=== PATIENT | male | born 1995 | race American Indian/Alaskan Native ===

== ENCOUNTER 2017-02-08 18:25 | Emergency (ER) | payer SELFPAY ==
[2017-02-08 19:21] VITALS: BP 121/87
[2017-02-08] MEDS ORDERED: ZOFRAN ODT ONE (19:22)
[2017-02-08] MEDS ORDERED: ZOFRAN ODT PO ONE (19:24)
[2017-02-08 20:00] LABS: Basophils % (Auto) 0.3 % (0.0-1.8); Eosinophils % (Auto) 0.3 % (0.0-4.3); Hematocrit 48.3 % (35.5-45.6); Hemoglobin 16.4 gm/dl (11.8-15.2); Mean Corpuscular HGB Conc 34 % (32-34); Mean Corpuscular Hemoglobin 31 pg (28-32); Mean Corpuscular Volume 92 fl (84-94); Platelet Count 240 K/mm3 (140-440); Red Blood Count 5.25 M/mm3 (3.65-5.03); Red Cell Distribution Width 13.1 % (13.2-15.2); White Blood Count 13.3 K/mm3 (4.5-11.0)
[2017-02-08 20:19] LABS: Anion Gap 21 mmol/L; BUN/Creatinine Ratio 14.44; Blood Urea Nitrogen 13 mg/dL (9-20); Calcium 10.3 mg/dL (8.4-10.2); Carbon Dioxide 22 mmol/L (22-30); Chloride 99.9 mmol/L (98-107); Glucose 139 mg/dL (75-100); Potassium 4.2 mmol/L (3.6-5.0); Sodium 139 mmol/L (137-145)
== END 2017-02-09 01:00 | disposition left against medical advice (07) ==
LOC: ED 18:25
DX: R11.10 Vomiting, unspecified (principal); Z53.21 Procedure and treatment not carried out due to patient leaving prior to being seen by health care provider
CPT/HCPCS: 36415; 80048; 85025; Q0162

== ENCOUNTER 2018-04-27 18:19 | Emergency (ER) | payer SELFPAY ==
[2018-04-27 18:27] VITALS: BP 114/52
[2018-04-27 19:14] LABS: Basophils % (Auto) 0.6 % (0.0-1.8); Eosinophils # (Auto) 0.1 K/mm3 (0.0-0.4); Hematocrit 42.9 % (35.5-45.6); Hemoglobin 14.7 gm/dl (11.8-15.2); Lymphocytes # (Auto) 2.6 K/mm3 (1.2-5.4); Lymphocytes % (Auto) 34.3 % (13.4-35.0); Mean Corpuscular HGB Conc 34 % (32-34); Mean Corpuscular Hemoglobin 32 pg (28-32); Mean Corpuscular Volume 93 fl (84-94); Monocytes # (Auto) 0.6 K/mm3 (0.0-0.8); Monocytes % (Auto) 8.1 % (0.0-7.3); Platelet Count 214 K/mm3 (140-440); Red Blood Count 4.61 M/mm3 (3.65-5.03); Red Cell Distribution Width 13.6 % (13.2-15.2)
[2018-04-27 19:21] LABS: Alanine Aminotransferase 24 units/L (7-56); Albumin 4.3 g/dL (3.9-5); BUN/Creatinine Ratio 9; Blood Urea Nitrogen 8 mg/dL (9-20); Calcium 8.7 mg/dL (8.4-10.2); Hemolysis Index 9; Lipase 39 units/L (13-60)
--- NOTE | 2018-04-27 22:15 | XRay Report ---
FINAL REPORT PROCEDURE: XR ABDOMEN 2V TECHNIQUE: Abdominal radiograph, single supine AP view. HISTORY: abd pain and constipation COMPARISON: No prior studies are available for comparison. FINDINGS: Bowel gas pattern:Nonobstructive. Masses or calcifications:None. Bony structures:No significant abnormality. Other:None. IMPRESSION: No acute abnormality
--- NOTE | 2018-04-27 22:54 | Emergency Department Report ---
ED N/V/D HPI - General Chief complaint: Abdominal Pain Stated complaint: STOMACH PAIN Time Seen by Provider: 04/27/18 20:42 Source: patient Mode of arrival: Ambulatory Limitations: No Limitations - History of Present Illness MD complaint: nausea, diarrhea (denies develop constipation. Reports no fevers , chills, sweats. No chest pain or palpitations. No foreign travel. No significant no hematemesis or hematochezia. No dysuria, no flank pain.), abdominal pain -: days(s) Time: 03:00 Description of Vomiting: other Description of Diarrhea: other Associated Abdominal Pain: No Location: diffuse Radiation: none Severity: mild Quality: cramping, dull Consistency: intermittent Improves with: none Worsens with: none Associated Symptoms: nausea/vomiting. denies: myalgias, cough, diaphoresis, loss of appetite, malaise, dysuria, syncope, weakness - Related Data Previous Rx's Medication Instructions Recorded Last Taken Type Ciprofloxacin HCl [Cipro] 500 mg PO BID #10 tablet 02/27/18 Unknown Rx Omeprazole 40 mg PO DAILY #10 capsule. 02/27/18 Unknown Rx metroNIDAZOLE [Flagyl] 500 mg PO Q12HR #10 tab 02/27/18 Unknown Rx Bisacodyl [Dulcolax suppos] 10 mg [place] QDAY #10 supp.rect 04/27/18 Unknown Rx Metoclopramide [Reglan] 10 mg PO TID #20 tab 04/27/18 Unknown Rx Allergies Allergy/AdvReac Type Severity Reaction Status Date / Time No Known Allergies Allergy Verified 04/27/18 18:21 ED Review of Systems ROS: Stated complaint: STOMACH PAIN Other details as noted in HPI ED Past Medical Hx - Past Medical History Previous Medical History?: No Additional medical history: Inflammed Galbladder - Surgical History Past Surgical History?: No - Social History Smoking Status: Current Every Day Smoker Substance Use Type: Alcohol, Marijuana - Medications Home Medications: Home Medications Medication Instructions Recorded Confirmed Last Taken Type Ciprofloxacin HCl [Cipro] 500 mg PO BID #10 tablet 02/27/18 Unknown Rx Omeprazole 40 mg PO DAILY #10 capsule. 02/27/18 Unknown Rx metroNIDAZOLE [Flagyl] 500 mg PO Q12HR #10 tab 02/27/18 Unknown Rx Bisacodyl [Dulcolax suppos] 10 mg [place] QDAY #10 supp.rect 04/27/18 Unknown Rx Metoclopramide [Reglan] 10 mg PO TID #20 tab 04/27/18 Unknown Rx ED Physical Exam - General Limitations: No Limitations ED Course Vital Signs 04/27/18 18:21 Temperature 97.8 F Pulse Rate 99 H Respiratory 18 Rate Blood Pressure 114/52 O2 Sat by Pulse 99 Oximetry ED Medical Decision Making - Lab Data Result diagrams: 04/27/18 18:44 04/27/18 18:44 Critical care attestation.: If time is entered above; I have spent that time in minutes in the direct care of this critically ill patient, excluding procedure time. ED Disposition Clinical Impression: Constipation, Diarrhea Disposition: DC- TO HOME OR SELFCARE Is pt being admited?: No Does the pt Need Aspirin: No Condition: Stable Instructions: Constipation (ED), High Fiber Diet (ED) Prescriptions: Bisacodyl [Dulcolax suppos] 10 mg [place] QDAY #10 supp.rect Metoclopramide [Reglan] 10 mg PO TID #20 tab Referrals: PRIMARY CARE, [Primary Care Provider] - 3-5 Days
== END 2018-04-27 23:00 | disposition home or self-care (01) ==
LOC: ED 18:19
DX: K59.00 Constipation, unspecified (principal); R19.7 Diarrhea, unspecified; F17.200 Nicotine dependence, unspecified, uncomplicated; F12.10 Cannabis abuse, uncomplicated
CPT/HCPCS: 36415; 74019; 80053; 83690; 85025; 99283

== ENCOUNTER 2018-10-18 05:24 | Emergency (ER) | payer SELFPAY ==
[2018-10-18] MEDS ORDERED: ZOFRAN IV ONE ×2 (05:42→07:54)
[2018-10-18] MEDS ORDERED: NACL 0.9% 1000 ML 1,000 ML IV ONE ×2 (05:43→07:16)
[2018-10-18 06:08] LABS: Hematocrit 49.4 % (35.5-45.6); Hemoglobin 16.8 gm/dl (11.8-15.2); Mean Corpuscular HGB Conc 34 % (32-34); Mean Corpuscular Volume 93 fl (84-94); Platelet Count 284 K/mm3 (140-440); Red Blood Count 5.34 M/mm3 (3.65-5.03); Red Cell Distribution Width 13.4 % (13.2-15.2)
[2018-10-18 06:30] LABS: BUN/Creatinine Ratio 18; Blood Urea Nitrogen 22 mg/dL (9-20); Calcium 9.8 mg/dL (8.4-10.2); Hemolysis Index 8
[2018-10-18 06:53] LABS: Bilirubin,Urine NEG (Negative); Blood,Urine NEG (Negative); Color,Urine Yellow (Yellow); Mucus,Urine 1+ /HPF; Urobilinogen,Urine < 2.0 mg/dL (<2.0)
--- NOTE | 2018-10-18 07:50 | Emergency Department Report ---
ED Abdominal Pain HPI - General Chief Complaint: Nausea/Vomiting/Diarrhea Stated Complaint: NAUSEA VOMITING Time Seen by Provider: 10/18/18 07:11 Source: patient Mode of arrival: Ambulatory Limitations: No Limitations - History of Present Illness Initial Comments: This is a 23-year-old male nontoxic, well nourished in appearance, no acute signs of distress presents to the ED with c/o of nausea and vomiting and abdominal pain 1 day. Patient describes vomiting as food content and yellow gastric acid. Patient describes abdominal pain as cramping and aching with level of 3/10 diffuse. Patient denies chest pain, short of breath, fever, chills, headache, stiff neck, numbness or tingling. Patient stated also has some diarrhea. Patient denies any recent travels. Patient denies any allergies or significant PMH. MD Complaint: abdominal pain -: days(s) Location: diffuse Radiation: none Migration to: no migration Severity: mild Severity scale (0 -10): 3 Quality: cramping, aching Consistency: constant Improves With: nothing Worsens With: nothing Associated Symptoms: nausea, vomiting. denies: diarrhea, fever, chills, constipation, dysuria, hematemesis, hematochezia, melena, hematuria, anorexia, syncope - Related Data Previous Rx's Medication Instructions Recorded Last Taken Type metroNIDAZOLE [Flagyl] 500 mg PO Q12HR #10 tab 02/27/18 Unknown Rx Bisacodyl [Dulcolax suppos] 10 mg [place] QDAY #10 supp.rect 04/27/18 Unknown Rx Ciprofloxacin HCl [Cipro] 500 mg PO BID #10 tablet 06/23/18 Unknown Rx Metoclopramide [Reglan TAB] 10 mg PO TID #20 tab 06/23/18 Unknown Rx Omeprazole 40 mg PO DAILY #10 capsule. 06/23/18 Unknown Rx Allergies Allergy/AdvReac Type Severity Reaction Status Date / Time No Known Allergies Allergy Verified 04/27/18 18:21 ED Review of Systems ROS: Stated complaint: NAUSEA VOMITING Other details as noted in HPI Constitutional: denies: chills, fever Eyes: denies: eye pain, eye discharge, vision change ENT: denies: ear pain, throat pain Respiratory: denies: cough, shortness of breath, wheezing Cardiovascular: denies: chest pain, palpitations Endocrine: no symptoms reported Gastrointestinal: abdominal pain, nausea, vomiting. denies: diarrhea Genitourinary: denies: urgency, dysuria Musculoskeletal: denies: back pain, joint swelling, arthralgia Skin: denies: rash, lesions Neurological: denies: headache, weakness, paresthesias Psychiatric: denies: anxiety, depression Hematological/Lymphatic: denies: easy bleeding, easy bruising ED Past Medical Hx - Past Medical History Previous Medical History?: Yes Additional medical history: Inflammed Galbladder - Surgical History Past Surgical History?: No - Social History Smoking Status: Current Every Day Smoker Substance Use Type: Marijuana - Medications Home Medications: Home Medications Medication Instructions Recorded Confirmed Last Taken Type metroNIDAZOLE [Flagyl] 500 mg PO Q12HR #10 tab 02/27/18 Unknown Rx Bisacodyl [Dulcolax suppos] 10 mg [place] QDAY #10 supp.rect 04/27/18 Unknown Rx Ciprofloxacin HCl [Cipro] 500 mg PO BID #10 tablet 06/23/18 Unknown Rx Metoclopramide [Reglan TAB] 10 mg PO TID #20 tab 06/23/18 Unknown Rx Omeprazole 40 mg PO DAILY #10 capsule.dr 06/23/18 Unknown Rx ED Physical Exam - General Limitations: No Limitations General appearance: alert, in no apparent distress - Head Head exam: Present: atraumatic, normocephalic - Eye Eye exam: Present: normal appearance - Neck Neck exam: Present: normal inspection, full ROM. Absent: tenderness, meningismus, lymphadenopathy - Respiratory Respiratory exam: Present: normal lung sounds bilaterally. Absent: respiratory distress, wheezes, rales, rhonchi, stridor, chest wall tenderness, accessory muscle use, decreased breath sounds, prolonged expiratory - Cardiovascular Cardiovascular Exam: Present: regular rate, normal rhythm, normal heart sounds. Absent: bradycardia, tachycardia, irregular rhythm, systolic murmur, diastolic murmur, rubs, gallop - GI/Abdominal GI/Abdominal exam: Present: soft, tenderness (diffuse ), normal bowel sounds. Absent: distended, guarding, rebound, rigid, diminished bowel sounds - Expanded GI/Abdominal Exam Expanded GI/Abdominal exam: Absent: psoas sign, Jimenez's sign, Rovsing's sign, tenderness at [place]bur[place]'s Point, ascites - Rectal Rectal exam: Present: deferred - Extremities Exam Extremities exam: Present: normal inspection, full ROM, normal capillary refill - Back Exam Back exam: Present: normal inspection, full ROM. Absent: tenderness, CVA tenderness (R), CVA tenderness (L), muscle spasm, paraspinal tenderness, vertebral tenderness, rash noted - Neurological Exam Neurological exam: Present: alert, oriented X3 - Psychiatric Psychiatric exam: Present: normal affect, normal mood - Skin Skin exam: Present: warm, dry, intact, normal color. Absent: rash ED Course Vital Signs 10/18/18 10/18/18 05:28 09:24 Temperature 97.9 F Pulse Rate 76 Respiratory 18 16 Rate Blood Pressure 131/51 O2 Sat by Pulse 98 Oximetry - Reevaluation(s) Reevaluation #1: 10/18/18 07:48 Patient is speaking in full sentences with no signs of distress noted. - Consultations Consultation #1: 10/18/18 09:00 Patient has been consulted with Jodi Gooden about patient history, physical exam, and labs/CT results and agrees to ED plan of care with surgery consult for possible admission. Consultation #2: 10/18/18 09:26 Dr. Garduno (hospitalist) was consulted and accepts patient to services for admission. ED Medical Decision Making - Lab Data Result diagrams: 10/18/18 05:48 10/18/18 05:48 - Medical Decision Making This is a 23-year-old male that presents with SB intussusception. Patient is stable and was examined by me. There is slight abdominal tenderness. Negative signs of symptoms of appendicitis. Labs obtained. UA obtained. Ct with contrast obtained and dictated by the radiologist. Patient was consulted with Dr. Swanson and Dr. Huang. Agrees for admission. Patient admitted by hospitalist. Patient put on NPO. At time of admission, the patient does not seem toxic or ill in appearance. No acute signs of distress noted. Patient agrees to admission treatment plan of care. No further questions noted by the patient. Critical care attestation.: If time is entered above; I have spent that time in minutes in the direct care of this critically ill patient, excluding procedure time. ED Disposition Clinical Impression: Small bowel intussusception Disposition: OP ADMIT IP TO THIS HOSP Is pt being admited?: Yes Condition: Stable
--- NOTE | 2018-10-18 08:50 | Cat Scan Report ---
PROCEDURE: CT ABDOMEN PELVIS W CON TECHNIQUE: CT of the abdomen and pelvis was performed. IV contrast was administered. No oral contrast was administered. Axial images and coronal and sagittal reformatted images were obtained. HISTORY: abd pain n/v COMPARISON: 06/23/2018 FINDINGS: The visualized lung bases are clear. The visualized liver, spleen, pancreas, adrenal glands and kidneys demonstrate no significant abnorma lity. There is no abdominal aortic aneurysm. There is a small bowel intussusception in the lower abdomen/pelvis. This may be transient. It does no t cause obstruction. The appendix is normal. There is no abnormal fluid collection seen. There is no free intraperitoneal air. Bladder is unremarkable. There is no abnormal pelvic fluid collection or mass seen. IMPRESSION: There is a short segment small bowel intussusception seen in the lower abdomen/pelvis. This does not cause obstruction. It may be transient. No other significant abnormalities seen. This document is electronically signed by Yumiko Patel MD., October 18 2018 08:47:57 AM ET
[2018-10-18] MEDS ORDERED: MORPHINE IV ONE (09:13)
[2018-10-18] MEDS ORDERED: REGLAN IV ONE (09:13)
[2018-10-18 10:15] VITALS: BP 106/54
[2018-10-18] MEDS ORDERED: ZOFRAN IV PRN (10:18)
[2018-10-18 10:28] LABS: Basophils % (Manual) 0 % (0.0-1.8); Eosinophils % (Manual) 0 % (0.0-4.3); Monocytes % (Manual) 0 % (0.0-7.3); Total Cells Counted 100
[2018-10-18 10:29] LABS: Platelet Estimate Consistent w Auto; RBC Morphology Normal
--- NOTE | 2018-10-18 10:37 | History and Physical Report ---
History of Present Illness Date of examination: 10/18/18 Date of admission: 10/18/18 09:29 Chief complaint: Nausea and vomiting History of present illness: 23-year-old male with past medical history significant for gastritis, alcohol abuse presents to the emergency department his complains of vomiting that started Friday morning and continued today total of 30X. Patient drunk a lot of beer and alcohol Friday night to Friday morning. Patient started to have nausea, vomiting. Initially it was yellowish and there after was clear. Patient also smoking marijuana and cigarettes. Patient denied any fever or chills. Patient has mild abdominal pain and diarrhea. Patient believes he has food poisoning. Patient had similar symptoms previously when he is drinking a lot. CT abdomen and pelvis was done in the ED showed intussusception, with no bowel obstruction and Dr Swanson was consulted and recommend to our service and will see him for observation. REVIEW OF SYSTEMS: GENERAL: no weight change, no fatigue, no fever HEAD: no head ache EYES: no blurry vision, no acute visual loss EARS: no hearing loss, no discharge, no earache NOSE: no stuffiness, no sneezing, no discharge MOUTH, THROAT AND NECK: no bleeding gums, no sore throat, no swollen neck CARDIAC: no palpitations, no dyspnea on exertion, no orthopnea, no PND, no edema, no chest pain RESPIRATORY: no shortness of breath, no wheeze, no cough, no sputum, no hemoptysis, no asthma GI: As stated in HPI. URINARY: no change in frequency, no urgency, no polyuria, no hematuria, no incontinence MUSCULOSKELETAL: no muscle weakness, no pain, no joint stiffness NEUROLOGIC: no loss of sensation/numbness, no tingling, no tremors, no weakness/paralysis HEMATOLOGIC: no anemia, no easy bruising SKIN: no rashes ENDOCRINE: no heat/cold intolerance, no polyuria, no polydipsia, no thyroid problems, no diabetes PSYCHIATRIC: no anxiety, no depression, no suicidal ideations Past History Past Medical History: other (gastritis, alcohol abuse) Past Surgical History: No surgical history Social history: smoking (smoking marijuana, and cigarettes), alcohol abuse (beer and alcohol), full code Family history: no significant family history Medications and Allergies Allergies Allergy/AdvReac Type Severity Reaction Status Date / Time No Known Allergies Allergy Verified 04/27/18 18:21 Home Medications Medication Instructions Recorded Confirmed Last Taken Type metroNIDAZOLE [Flagyl] 500 mg PO Q12HR #10 tab 02/27/18 Unknown Rx Bisacodyl [Dulcolax suppos] 10 mg [place] QDAY #10 supp.rect 04/27/18 Unknown Rx Ciprofloxacin HCl [Cipro] 500 mg PO BID #10 tablet 06/23/18 Unknown Rx Metoclopramide [Reglan TAB] 10 mg PO TID #20 tab 06/23/18 Unknown Rx Omeprazole 40 mg PO DAILY #10 capsule. 06/23/18 Unknown Rx Active Meds: Active Medications Enoxaparin Sodium (Lovenox) 40 mg SUB-Q QDAY@2200 SINDY Dextrose/Sodium Chloride (D5/0.45ns) 1,000 mls @ 75 mls/hr IV DIRECT SINDY Levofloxacin/Dextrose (Levaquin 750mg/150ml) 750 mg in 150 mls @ 100 mls/hr IV Q24HR SINDY; Protocol Ondansetron HCl (Zofran) 4 mg IV Q8H PRN PRN Reason: N/V unrelieved by Reglan Pantoprazole Sodium (Protonix) 40 mg IV BID SINDY Exam - Physical Exam Narrative exam: Not in cardiopulmonary distress. The patient appeared well nourished and normally developed. Vital signs as documented. Head exam is unremarkable. No scleral icterus . Neck is without jugular venous distension, thyromegaly, or carotid bruits. Lungs are clear to auscultation. Cardiac exam reveals regular rate and Rhythm. Abdominal exam reveals normal bowel sounds. Extremities are nonedematous and both femoral and pedal pulses are normal. INFORMATION SYSTEMS ARCHITECT: Alert and oriented 3. No focal weakness. - Constitutional Vitals: Temp Pulse Resp BP Pulse Ox 97.8 F 68 16 106/54 97 10/18/18 10:14 10/18/18 10:14 10/18/18 10:14 10/18/18 10:14 10/18/18 10:14 Results - Labs CBC & Chem 7: 10/18/18 05:48 10/18/18 05:48 Labs: Laboratory Last Values WBC 19.4 K/mm3 (4.5-11.0) H 10/18/18 05:48 RBC 5.34 M/mm3 (3.65-5.03) H 10/18/18 05:48 Hgb 16.8 gm/dl (11.8-15.2) H 10/18/18 05:48 Hct 49.4 % (35.5-45.6) H 10/18/18 05:48 MCV 93 fl (84-94) 10/18/18 05:48 MCH 31 pg (28-32) 10/18/18 05:48 MCHC 34 % (32-34) 10/18/18 05:48 RDW 13.4 % (13.2-15.2) 10/18/18 05:48 Plt Count 284 K/mm3 (140-440) 10/18/18 05:48 Add Manual Diff Complete 10/18/18 05:48 Total Counted 100 10/18/18 05:48 Seg Neuts % (Manual) 95.0 % (40.0-70.0) H 10/18/18 05:48 Band Neutrophils % 0 % 10/18/18 05:48 Lymphocytes % (Manual) 5.0 % (13.4-35.0) L 10/18/18 05:48 Reactive Lymphs % (Man) 0 % 10/18/18 05:48 Monocytes % (Manual) 0 % (0.0-7.3) 10/18/18 05:48 Eosinophils % (Manual) 0 % (0.0-4.3) 10/18/18 05:48 Basophils % (Manual) 0 % (0.0-1.8) 10/18/18 05:48 Metamyelocytes % 0 % 10/18/18 05:48 Myelocytes % 0 % 10/18/18 05:48 Promyelocytes % 0 % 10/18/18 05:48 Blast Cells % 0 % 10/18/18 05:48 Nucleated RBC % Not Reportable 10/18/18 05:48 Seg Neutrophils # Man 18.4 K/mm3 (1.8-7.7) H 10/18/18 05:48 Band Neutrophils # 0.0 K/mm3 10/18/18 05:48 Lymphocytes # (Manual) 1.0 K/mm3 (1.2-5.4) L 10/18/18 05:48 Abs React Lymphs (Man) 0.0 K/mm3 10/18/18 05:48 Monocytes # (Manual) 0.0 K/mm3 (0.0-0.8) 10/18/18 05:48 Eosinophils # (Manual) 0.0 K/mm3 (0.0-0.4) 10/18/18 05:48 Basophils # (Manual) 0.0 K/mm3 (0.0-0.1) 10/18/18 05:48 Metamyelocytes # 0.0 K/mm3 10/18/18 05:48 Myelocytes # 0.0 K/mm3 10/18/18 05:48 Promyelocytes # 0.0 K/mm3 10/18/18 05:48 Blast Cells # 0.0 K/mm3 10/18/18 05:48 WBC Morphology Not Reportable 10/18/18 05:48 Hypersegmented Neuts Not Reportable 10/18/18 05:48 Hyposegmented Neuts Not Reportable 10/18/18 05:48 Hypogranular Neuts Not Reportable 10/18/18 05:48 Smudge Cells Not Reportable 10/18/18 05:48 Toxic Granulation Not Reportable 10/18/18 05:48 Toxic Vacuolation Not Reportable 10/18/18 05:48 Dohle Bodies Not Reportable 10/18/18 05:48 Pelger-Huet Anomaly Not Reportable 10/18/18 05:48 Jenesn Rods Not Reportable 10/18/18 05:48 Platelet Estimate Consistent w auto 10/18/18 05:48 Clumped Platelets Not Reportable 10/18/18 05:48 Plt Clumps, EDTA Not Reportable 10/18/18 05:48 Large Platelets Not Reportable 10/18/18 05:48 Giant Platelets Not Reportable 10/18/18 05:48 Platelet Satelliting Not Reportable 10/18/18 05:48 Plt Morphology Comment Not Reportable 10/18/18 05:48 RBC Morphology Normal 10/18/18 05:48 Dimorphic RBCs Not Reportable 10/18/18 05:48 Polychromasia Not Reportable 10/18/18 05:48 Hypochromasia Not Reportable 10/18/18 05:48 Poikilocytosis Not Reportable 10/18/18 05:48 Anisocytosis Not Reportable 10/18/18 05:48 Microcytosis Not Reportable 10/18/18 05:48 Macrocytosis Not Reportable 10/18/18 05:48 Spherocytes Not Reportable 10/18/18 05:48 Pappenheimer Bodies Not Reportable 10/18/18 05:48 Sickle Cells Not Reportable 10/18/18 05:48 Target Cells Not Reportable 10/18/18 05:48 Tear Drop Cells Not Reportable 10/18/18 05:48 Ovalocytes Not Reportable 10/18/18 05:48 Helmet Cells Not Reportable 10/18/18 05:48 [place] Bodies Not Reportable 10/18/18 05:48 [place] Rings Not Reportable 10/18/18 05:48 [place] Cells Not Reportable 10/18/18 05:48 Bite Cells Not Reportable 10/18/18 05:48 Crenated Cell Not Reportable 10/18/18 05:48 Elliptocytes Not Reportable 10/18/18 05:48 Acanthocytes (Spur) Not Reportable 10/18/18 05:48 Rouleaux Not Reportable 10/18/18 05:48 Hemoglobin C Crystals Not Reportable 10/18/18 05:48 Schistocytes Not Reportable 10/18/18 05:48 Malaria parasites Not Reportable 10/18/18 05:48 Major Bodies Not Reportable 10/18/18 05:48 Hem Pathologist Commnt No 10/18/18 05:48 VBG pH 7.326 (7.320-7.420) 10/18/18 07:16 Sodium 140 mmol/L (137-145) 10/18/18 05:48 Potassium 4.1 mmol/L (3.6-5.0) 10/18/18 05:48 Chloride 93.0 mmol/L (98-107) L 10/18/18 05:48 Carbon Dioxide 23 mmol/L (22-30) 10/18/18 05:48 Anion Gap 28 mmol/L 10/18/18 05:48 BUN 22 mg/dL (9-20) H 10/18/18 05:48 Creatinine 1.2 mg/dL (0.8-1.5) 10/18/18 05:48 Estimated GFR > 60 ml/min 10/18/18 05:48 BUN/Creatinine Ratio 18 % 10/18/18 05:48 Glucose 128 mg/dL (75-100) H 10/18/18 05:48 Calcium 9.8 mg/dL (8.4-10.2) 10/18/18 05:48 Lipase 25 units/L (13-60) 10/18/18 07:16 Urine Color Yellow (Yellow) 10/18/18 06:15 Urine Turbidity Clear (Clear) 10/18/18 06:15 Urine pH 5.0 (5.0-7.0) 10/18/18 06:15 Ur Specific [place] 1.035 (1.003-1.030) H 10/18/18 06:15 Urine Protein 100 mg/dl mg/dL (Negative) 10/18/18 06:15 Urine Glucose (UA) Neg mg/dL (Negative) 10/18/18 06:15 Urine Ketones 80 mg/dL (Negative) 10/18/18 06:15 Urine Blood Neg (Negative) 10/18/18 06:15 Urine Nitrite Neg (Negative) 10/18/18 06:15 Urine Bilirubin Neg (Negative) 10/18/18 06:15 Urine Urobilinogen < 2.0 mg/dL (<2.0) 10/18/18 06:15 Ur Leukocyte Esterase Neg (Negative) 10/18/18 06:15 Urine WBC (Auto) 2.0 /HPF (0.0-6.0) 10/18/18 06:15 Urine RBC (Auto) 2.0 /HPF (0.0-6.0) 10/18/18 06:15 U Epithel Cells (Auto) < 1.0 /HPF (0-13.0) 10/18/18 06:15 Urine Mucus 1+ /HPF 10/18/18 06:15 Assessment and Plan Assessment and plan: Recurrent nausea and vomiting, Acute gastroenteritis, gastritis - On IV zofran, IVF, IV levaquin, protonix Small bowel intussesception - non obstructive - abdomen is soft non tender - General surgery consulted alcohol abuse - On [facility] protocol DVT prophylaxis - Lovenox Disposition - admit to surgical floor for observation Advance Directives: Yes VTE prophylaxis?: Chemical Plan of care discussed with patient/family: Yes
--- NOTE | 2018-10-18 10:53 | XRay Report ---
PROCEDURE: XR CHEST 1V AP TECHNIQUE: Single view HISTORY: leukocytosis, vomiting COMPARISONS: None FINDINGS: Trachea midline. Heart size normal. No pneumothorax. No effusion. Lungs clear No acute bony abnormality IMPRESSION: No active pulmonary disease. This document is electronically signed by Lux Carrero MD., October 18 2018 10:51:20 AM ET
[2018-10-18] MEDS ORDERED: D5/0.45NS 1,000 ML IV SCH (11:00)
[2018-10-18] MEDS ORDERED: LEVAQUIN 750MG/150ML 750 MG/150 ML BAG IV SCH (11:00)
[2018-10-18] MEDS ORDERED: PROTONIX IV SCH (11:00)
[2018-10-18] MEDS ORDERED: LEVAQUIN 750MG/150ML 750 MG/150 ML BAG IV ONE (11:08)
--- NOTE | 2018-10-18 14:34 | Event Note ---
Date: 10/18/18 Discussed case earlier today with ED and Dr. Garduno. Per Dr. Garduno, patient appeared to have more of a gastroenteritis type picture. Went to see patient, but he signed out AMA before I could see him. No consult was able to be done.
[2018-10-18] MEDS ORDERED: LOVENOX SUB-Q SCH (22:00)
== END 2018-10-18 12:52 | disposition left against medical advice (07) ==
LOC: ED 05:24 → 3B-SURG 09:29 → UNDOADMIN 09:29
DX: K56.1 Intussusception (principal); F17.200 Nicotine dependence, unspecified, uncomplicated; F12.10 Cannabis abuse, uncomplicated
CPT/HCPCS: 36415; 71045; 74177; 80048; 81001; 82805; 83036; 83690; 85007; 85025; 96361; 96365; 96375; 96376; 99284; J1956; J2270; J2405; J7030; Q9967; G0378

== ENCOUNTER 2019-04-05 18:33 | Emergency (ER) | payer OTHER ==
[2019-04-05 19:17] VITALS: BP 119/66
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
== END 2019-04-05 22:38 | disposition home or self-care (01) ==
LOC: ED 18:33
DX: S46.911A Strain of unspecified muscle, fascia and tendon at shoulder and upper arm level, right arm, initial encounter (principal); S39.012A Strain of muscle, fascia and tendon of lower back, initial encounter; S16.1XXA Strain of muscle, fascia and tendon at neck level, initial encounter; F17.200 Nicotine dependence, unspecified, uncomplicated; Z87.19 Personal history of other diseases of the digestive system; Z79.899 Other long term (current) drug therapy; V49.49XA Driver injured in collision with other motor vehicles in traffic accident, initial encounter; Y93.89 Activity, other specified; Y92.410 Unspecified street and highway as the place of occurrence of the external cause; Y99.8 Other external cause status
CPT/HCPCS: 72040; 72070

== ENCOUNTER 2019-07-19 02:22 | Emergency (ER) | payer SELFPAY ==
[2019-07-19] MEDS ORDERED: ONDANSETRON 4 MG ODT TAB ONE ×2 (03:38→03:39)
[2019-07-19] MEDS ORDERED: ONDANSETRON 4 MG ODT TAB PO ONE (03:39)
== END 2019-07-19 08:17 | disposition left against medical advice (07) ==
LOC: ED 02:22
DX: R11.0 Nausea (principal); Z53.21 Procedure and treatment not carried out due to patient leaving prior to being seen by health care provider
CPT/HCPCS: Q0162

== ENCOUNTER 2021-09-26 12:23 | Emergency (ER) | payer SELFPAY ==
--- NOTE | 2021-09-26 12:44 | Emergency Department Report ---
ED Abdominal Pain HPI - General Stated Complaint: VOMITING Time Seen by Provider: 09/26/21 12:41 - History of Present Illness Initial Comments: Patient presents with a 1 day history of abdominal cramps associate with nausea, vomiting, and diarrhea. This started after he ate ice cream and cookies. He believes it might have been food poisoning. He has had no sick contacts. He has not been out of the country. Patient has not been on antibiotics lately. Again, the nausea and vomiting of been persistent. He is gotten to the point he is not able to vomit anything because there is nothing left in his stomach. He reports retching and dry heaving. The abdominal pain is described as cramping. It is generalized. It does not radiate or migrate. - Related Data Previous Rx's Medication Instructions Recorded Last Taken Type bisacodyL [Dulcolax suppos] 10 mg [place] QDAY #10 supp.rect 04/27/18 Unknown Rx Metoclopramide [Reglan TAB] 10 mg PO TID #20 tab 09/26/21 Unknown Rx Omeprazole 40 mg PO DAILY #10 capsule. 09/26/21 Unknown Rx Allergies Allergy/AdvReac Type Severity Reaction Status Date / Time No Known Allergies Allergy Verified 04/27/18 18:21 ED Review of Systems ROS: Stated complaint: VOMITING Other details as noted in HPI Comment: All other systems reviewed and negative Constitutional: denies: fever Eyes: denies: vision change ENT: denies: throat pain Respiratory: denies: cough Cardiovascular: denies: chest pain Endocrine: denies: unexplained weight loss Gastrointestinal: as per HPI Genitourinary: denies: dysuria Musculoskeletal: denies: back pain Skin: denies: rash Neurological: denies: headache Hematological/Lymphatic: denies: easy bruising ED Past Medical Hx - Past Medical History Previous Medical History?: No Additional medical history: Inflammed Galbladder - Family History Family history: no significant - Social History Smoking Status: Current Some Day Smoker (We discussed tobacco cessation) - Medications Home Medications: Home Medications Medication Instructions Recorded Confirmed Last Taken Type bisacodyL [Dulcolax suppos] 10 mg [place] QDAY #10 supp.rect 04/27/18 Unknown Rx Metoclopramide [Reglan TAB] 10 mg PO TID #20 tab 09/26/21 Unknown Rx Omeprazole 40 mg PO DAILY #10 capsule. 09/26/21 Unknown Rx ED Physical Exam - General Limitations: No Limitations, Other (Pulse ox noted and normal) General appearance: alert, in no apparent distress - Head Head exam: Present: atraumatic, normocephalic, normal inspection - Eye Eye exam: Present: normal appearance, PERRL, EOMI. Absent: scleral icterus - ENT ENT exam: Present: normal orophraynx, normal external ear exam - Neck Neck exam: Present: normal inspection. Absent: meningismus - Respiratory Respiratory exam: Present: normal lung sounds bilaterally. Absent: respiratory distress - Cardiovascular Cardiovascular Exam: Present: regular rate, normal rhythm - GI/Abdominal GI/Abdominal exam: Present: soft, tenderness (Periumbilical), other (No right upper quadrant tenderness). Absent: distended, guarding, rebound - Extremities Exam Extremities exam: Present: normal capillary refill - Back Exam Back exam: Absent: CVA tenderness (R), CVA tenderness (L) - Neurological Exam Neurological exam: Present: alert, oriented X3, CN II-XII intact, normal gait. Absent: motor sensory deficit - Psychiatric Psychiatric exam: Present: normal affect, normal mood - Skin Skin exam: Present: warm, dry ED Course Vital Signs 09/26/21 12:43 Temperature 98.6 F Pulse Rate 54 L Respiratory 16 Rate Blood Pressure 122/56 [Left] O2 Sat by Pulse 100 Oximetry - Reevaluation(s) Reevaluation #1: 09/26/21 12:43 Labs and meds ordered. Reevaluation #2: 09/26/21 16:17 Labs are noted and the patient was discharged ED Medical Decision Making - Lab Data Result diagrams: 09/26/21 13:09 - Medical Decision Making Patient presents secondary to abdominal pain associate with nausea, vomiting, and diarrhea. There is no clinical evidence of acute hepatitis or pancreatitis. He does not have distention or tympany to suggest a bowel obstruction. There is no focal right upper quadrant tenderness though suggest biliary disease. He was treated symptomatically and referred for outpatient evaluation and follow- up. Critical Care Time: No Critical care attestation.: If time is entered above; I have spent that time in minutes in the direct care of this critically ill patient, excluding procedure time. ED Disposition Clinical Impression: Nausea vomiting and diarrhea, Abdominal cramps Disposition: HOME / SELF CARE / HOMELESS Is pt being admited?: No Condition: Stable Instructions: Abdominal Pain, Adult, Food Choices to Help Relieve Diarrhea, Adult, Nausea and Vomiting, Adult Additional Instructions: Have a bland diet. Drink plenty of water. Return for problems. Follow-up with your regular doctor or the referral doctor for recheck. Prescriptions: Omeprazole 40 mg PO DAILY #10 capsule. Metoclopramide [Reglan TAB] 10 mg PO TID #20 tab Referrals: PRIMARY CAREMD [Referring] - 3-5 Days MINH ASHBY MD [Staff Physician] - 3-5 Days
[2021-09-26] MEDS: HYOSCYAMINE SUBL 0.125 MG TAB SL ONE (13:10)
[2021-09-26] MEDS: ONDANSETRON 4 MG ODT TAB PO ONE (13:11)
[2021-09-26 14:17] LABS: BUN/Creatinine Ratio 17; Blood Urea Nitrogen 17 mg/dL (9-20); Calcium 9.6 mg/dL (8.4-10.2); Hemolysis Index 59
[2021-09-26 17:02] VITALS: BP 123/77
== END 2021-09-26 17:02 | disposition home or self-care (01) ==
LOC: ED 12:23
DX: R11.2 Nausea with vomiting, unspecified (principal); R19.7 Diarrhea, unspecified; R10.9 Unspecified abdominal pain; F17.200 Nicotine dependence, unspecified, uncomplicated
CPT/HCPCS: 36415; 80048; 99283; J3490; Q0162

== ENCOUNTER 2021-09-28 10:24 | Emergency (ER) | payer SELFPAY ==
[2021-09-28] MEDS ORDERED: ONDANSETRON 4 MG/2 ML INJ IV ONE (11:21)
[2021-09-28] MEDS ORDERED: SODIUM CHLORIDE 0.9% 1000 ML 1,000 ML IV ONE (11:21)
[2021-09-28] MEDS ORDERED: KETOROLAC 30 MG/1 ML INJ IV ONE (11:22)
[2021-09-28 12:27] LABS: Basophils # (Auto) 0.1 K/mm3 (0.0-0.1); Basophils % (Auto) 0.6 % (0.0-1.8); Hematocrit 44.3 % (35.5-45.6); Hemoglobin 14.8 gm/dl (11.8-15.2); Lymphocytes # (Auto) 1.4 K/mm3 (1.2-5.4); Lymphocytes % (Auto) 13.4 % (13.4-35.0); Mean Corpuscular HGB Conc 34 % (32-34); Mean Corpuscular Volume 92 fl (84-94); Monocytes % (Auto) 9.7 % (0.0-7.3); Platelet Count 241 K/mm3 (140-440); Red Blood Count 4.82 M/mm3 (3.65-5.03); Red Cell Distribution Width 14.7 % (13.2-15.2)
[2021-09-28 12:30] LABS: Alanine Aminotransferase 47 units/L (7-56); Albumin 5.2 g/dL (3.9-5); BUN/Creatinine Ratio 13; Blood Urea Nitrogen 14 mg/dL (9-20); Calcium 10.1 mg/dL (8.4-10.2); Hemolysis Index 6
--- NOTE | 2021-09-28 12:56 | Emergency Department Report ---
ED N/V/D HPI - General Chief complaint: Nausea/Vomiting/Diarrhea Stated complaint: VOMITING Time Seen by Provider: 09/28/21 11:16 Source: patient Mode of arrival: Ambulatory Limitations: No Limitations - History of Present Illness Initial comments: pt presents to ed with complaint of vomiting pt had ice cream with cookies 2 days ago and feels bad, no fever no rash complaint: nausea, vomiting -: Gradual, days(s) Description of Vomiting: food contents Associated Abdominal Pain: No Consistency: intermittent Improves with: eating Associated Symptoms: nausea/vomiting, weakness. denies: denies other symptoms, myalgias, chest pain, cough, diaphoresis, headaches, loss of appetite, malaise, shortness of breath, syncope - Related Data Previous Rx's Medication Instructions Recorded Last Taken Type bisacodyL [Dulcolax suppos] 10 mg [place] QDAY #10 supp.rect 04/27/18 Unknown Rx Metoclopramide [Reglan TAB] 10 mg PO TID #20 tab 09/26/21 Unknown Rx Omeprazole 40 mg PO DAILY #10 capsule. 09/26/21 Unknown Rx Allergies Allergy/AdvReac Type Severity Reaction Status Date / Time No Known Allergies Allergy Verified 09/28/21 11:55 ED Review of Systems ROS: Stated complaint: VOMITING Other details as noted in HPI Constitutional: denies: chills, fever Eyes: denies: eye pain, eye discharge, vision change ENT: denies: ear pain, throat pain Respiratory: denies: cough, shortness of breath, wheezing Cardiovascular: denies: chest pain, palpitations Endocrine: no symptoms reported Gastrointestinal: denies: abdominal pain, nausea, diarrhea Genitourinary: denies: urgency, dysuria Musculoskeletal: denies: back pain, joint swelling, arthralgia Skin: denies: rash, lesions Neurological: denies: headache, weakness, paresthesias Psychiatric: denies: anxiety, depression Hematological/Lymphatic: denies: easy bleeding, easy bruising ED Past Medical Hx - Past Medical History Previous Medical History?: No Hx Hypertension: No Hx CVA: No Additional medical history: Inflammed Galbladder - Social History Smoking Status: Never Smoker Substance Use Type: None - Medications Home Medications: Home Medications Medication Instructions Recorded Confirmed Last Taken Type bisacodyL [Dulcolax suppos] 10 mg [place] QDAY #10 supp.rect 04/27/18 09/28/21 Unknown Rx Metoclopramide [Reglan TAB] 10 mg PO TID #20 tab 09/26/21 09/28/21 Unknown Rx Omeprazole 40 mg PO DAILY #10 capsule.dr 09/26/21 09/28/21 Unknown Rx ED Physical Exam - General Limitations: No Limitations General appearance: alert, in no apparent distress - Head Head exam: Present: atraumatic, normocephalic - Eye Eye exam: Present: normal appearance - ENT ENT exam: Present: mucous membranes moist - Neck Neck exam: Present: normal inspection - Respiratory Respiratory exam: Present: normal lung sounds bilaterally. Absent: respiratory distress - Cardiovascular Cardiovascular Exam: Present: regular rate, normal rhythm. Absent: systolic murmur, diastolic murmur, rubs, gallop - GI/Abdominal GI/Abdominal exam: Present: soft, normal bowel sounds - Rectal Rectal exam: Present: deferred - Extremities Exam Extremities exam: Present: normal inspection - Back Exam Back exam: Present: normal inspection - Neurological Exam Neurological exam: Present: alert, oriented X3 - Psychiatric Psychiatric exam: Present: normal affect, normal mood - Skin Skin exam: Present: warm, dry, intact, normal color. Absent: rash ED Course Vital Signs 09/28/21 09/28/21 11:08 11:52 Temperature 98.9 F 98.9 F Pulse Rate 62 83 Respiratory 16 20 Rate Blood Pressure 130/77 124/75 [Left] O2 Sat by Pulse 98 99 Oximetry ED Medical Decision Making - Lab Data Result diagrams: 09/28/21 11:41 09/28/21 11:41 - Medical Decision Making vss , no fever , nausea is better able to tolerate pO Critical care attestation.: If time is entered above; I have spent that time in minutes in the direct care of this critically ill patient, excluding procedure time. ED Disposition Clinical Impression: Nausea vomiting and diarrhea Disposition: 01 HOME / SELF CARE / HOMELESS Is pt being admited?: No Does the pt Need Aspirin: No Condition: Stable Referrals: TAMMY MARIN MD [Primary Care Provider] - 3-5 Days
[2021-09-28 13:24] VITALS: BP 127/86
== END 2021-09-28 13:24 | disposition home or self-care (01) ==
LOC: ED 10:24
DX: R11.2 Nausea with vomiting, unspecified (principal); R19.7 Diarrhea, unspecified; Z79.899 Other long term (current) drug therapy
CPT/HCPCS: 36415; 80053; 82150; 83690; 85025; 96361; 96374; 96375; 99283; J1885; J2405; J7030; Q0162